=== PATIENT | female | born 2000 ===

== ENCOUNTER 2018-08-02 15:59 | Inpatient (IN) | payer MEDICAID, OTHER ==
[2018-08-02 17:03] LABS: BASO # 0.02 K/mm3 (0.0-2.0); BASO % 0.2 % (0.0-3.0); EOS % 0.3 % (1.5-5.0); LYMPH # 1.8 (1.2-3.4); LYMPH % 19.5 % (22.0-35.0); MEAN CELL VOLUME 90.6 fl (80.0-105.0); MEAN CORPUSCULAR HGB CONC 33.1 g/dl (31.0-37.0); MEAN PLATELET VOLUME 10.8 fl (7.0-11.0); MONO # 0.4 (0.1-0.6); MONO % 4.9 % (1.0-6.0); RBC 4.34 10^6/uL (3.5-6.1); RED CELL DISTRIBUTION WIDTH 12.8 % (11.5-14.5)
[2018-08-02 17:04] LABS: URINE APPEARANCE CLOUDY (CLEAR); URINE BILIRUBIN MODERATE (NEGATIVE); URINE BLOOD NEGATIVE (NEGATIVE); URINE COLOR DARK YELLOW (YELLOW); URINE GLUCOSE (UA) NEGATIVE (NEGATIVE); URINE LEUKOCYTE ESTERASE NEGATIVE Leu/uL (NEGATIVE); URINE PROTEIN 100 mg/dL (<30 mg/dL); URINE UROBILINOGEN 0.2 E.U./dL (<1 E.U./dL)
[2018-08-02 17:06] LABS: URINE RBC 0 - 2 /hpf (0-2)
[2018-08-02 17:07] LABS: URINE BACTERIA MANY /hpf
[2018-08-02 17:15] LABS: ACETAMINOPHEN < 10.0 ug/ml (10.0-20.0); SALICYLATE < 1 mg/dL (2.0-20.0)
[2018-08-02 17:16] LABS: ALB/GLOB RATIO 1.5 (1.1-1.8); ALBUMIN 4.6 g/dL (3.0-4.8); ALT/SGPT 25 U/L (7-56); AST/SGOT 28 U/L (14-36); BLOOD UREA NITROGEN 15 mg/dL (7-21); CALCIUM 9.7 mg/dL (8.4-10.5); GFR NON-AFRICAN AMERICAN > 60
[2018-08-02 17:26] LABS: BARBITURATES, UR NEGATIVE (NEGATIVE); BENZODIAZEPINES, UR NEGATIVE (NEGATIVE); OPIATES, UR NEGATIVE (NEGATIVE); PHENCYCLIDINE, UR NEGATIVE (NEGATIVE)
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
[2018-08-02] MEDS ORDERED: Magnesium Hydroxide Susp 30 ml UD PO PRN (21:54)
[2018-08-02] MEDS ORDERED: Alum-Mag Hydrox-Simethicone Susp (30 mL) PO PRN (21:54)
[2018-08-02] MEDS ORDERED: DiphenhydrAMINE 50 mg/ml Inj IM PRN (21:59)
[2018-08-02 22:25] VITALS: O2SAT 99
--- NOTE | 2018-08-02 22:42 | PCM.BM ---
<Briseyda Lopez - Last Filed: 08/02/18 22:39> Treatment Plan Problems - Problems identified on initial assessmt Medication non-adherence Date Initiated: 08/02/18 Time Initiated: 22:39 Assessment reference: NA Status: Active Auditory hallucinations Date Initiated: 08/02/18 Time Initiated: 22:40 Assessment reference: NA Status: Active Visual hallucinations Date Initiated: 08/02/18 Time Initiated: 22:40 Assessment reference: NA Status: Active Altered thought process Date Initiated: 08/02/18 Time Initiated: 22:40 Assessment reference: NA Status: Active Ineffective coping Date Initiated: 08/02/18 Time Initiated: 22:41 Assessment reference: NA Status: Active Treatment assets and liabiliti Patient Assests: educated, physically healthy Patient Liabilities: relationship conflicts, substance abuse - Milieu Protocol Maintain good personal hygiene: daily Encourage regular showers, daily Remind patient to perform daily oral care Conduct patient checks and document Observation sheet: Q15 minutes Maintain personal safety: every shift Educate patient to report safety concerns to staff, every shift Monitor environment for contraband/sharps Medication safety: Monitor for expected outcome, potential side effects: every shift, Assess barriers to learning: every shift, Assess readiness for medication education: every shift Family Contact Family involvement: Patient does not wish Family/SO involvement Discharge/Continuing Care - Education Needs Education Needs: Patient Medication, Patient Diagnosis/Disease Process, Patient Coping Skills, Patient Anger Management skills, Patient Aftercare Safety Plan - Discharge Discharge Criteria: Tolerates medication w/o severe side effects, Free of agitation, Normal sleep pattern, Ability to care for self, No longer exhibiting s/s of withdrawal, Reduction of target symptoms Discharge to:: Home <Alberto Mccarthy - Last Filed: 08/03/18 10:05> - Diagnosis (1) Schizophrenia Status: Acute Interventions: 08/03/18 10:05 * Group, milieu and supportive tx * SW consultation for discharge plan and social issues * Restart prozac 20 mg po daily for depression and anxiety * Risperdal 0.5 mg AMHS increased to 1 mg AMHS for psychosis * Klonopin 1 mg HS for anxiety and insomnia * Sonata 10 mg po HS prn: insomnia * Haldol 5, Ativan 2, Benadryl 50 po & IM medications prn for agitation * This provider informed patient on 08/03/18 that there is no guarantee about a safe amount or timing of cannabis use with meds. And that some patients report increased or different side effects or cannabis affects even with minimal use. This provider educated patient that she cannot expect to get the full benefits of treatment for mood, anxiety and psychosis if she continues to use MJA on a regular basis. * This provider also discussed the legality issues and medical concerns regarding smoking cannabis and its effects on pulmonary health. <Victoria Fuentes - Last Filed: 08/06/18 16:18> Family Contact Family involvement: Family/SO is involved Family contact: Patient agrees to contact
[2018-08-03 08:13] LABS: GLUCOSE,FASTING 135 mg/dL (65-110); HDL CHOLESTEROL 74 mg/dL (29-60)
[2018-08-03 08:23] LABS: LDL CHOLESTEROL 76 mg/dL (0-129)
[2018-08-03] MEDS: FLUoxetine Elix 20 MG/5 ML PO SCH (09:01)
--- NOTE | 2018-08-03 09:32 | RAD ---
Date of service: 08/02/2018 HISTORY: PES eval COMPARISON: No prior. TECHNIQUE: 1 view obtained. FINDINGS: LUNGS: No active pulmonary disease. PLEURA: No significant pleural effusion identified, no pneumothorax apparent. CARDIOVASCULAR: No aortic atherosclerotic calcification present. Normal cardiac size. No pulmonary vascular congestion. OSSEOUS STRUCTURES: No significant abnormalities. VISUALIZED UPPER ABDOMEN: Normal. OTHER FINDINGS: Bilateral nipple ornamentation. IMPRESSION: No active disease.
--- NOTE | 2018-08-03 10:05 | PCM.PSYCH ---
Initial Psychiatric Evaluation - Initial Psychiatric Evaluation Type of Admission: Voluntary Legal Status: Capacity History of Present Illness and Precipitating Events: Patient is a single, 18 year old female with history of schizophrenia, chronic cannabis use, at least one prior psychiatric admission at [facility] a few months ago, + history of SA as a minor, noncompliance with psychiatric medications of Prozac 20 mg po daily and Risperdal 0.5 mg po HS x 2 weeks who presented to the ER on Sunday,08/02/18 with her parents {mother & stepfather} for evaluation. ER & PES report indicate that, per parents, patient has been increasingly disorganized and aggressive at home. She has been talking and laughing to herself, throwing objects at family members and carelessly lighting candles in the house. Mother expressed concern that patient would burn the house down due to her disorganization. In the ED patient admitted to hearing auditory hallucinations of "voices". Patient was noted to be disorganized and actively responding to internal stimuli when she arrived on the unit. Patient was brought to seclusion room because she was loudly talking to herself. She appeared to respond well to medications Haldol 5 mg, Klonopin 1 mg and Sonata 10 mg po and slept through the night. I met with patient in the dayroom this morning. She is well-groomed and oriented to month, year and location. Regarding circumstances, she "doesn't really know" why she was hospitalized though almost immediately states "my mom noticed I was getting angry". Patient is guarded and aloof. She denies any issues with mood or perceptual disturbance. She denies recent agitated behaviors {contradicting ER reports}. Patient initially denies any prior psychiatric admissions however later indicates that she had "a psychotic break" a few months ago. With further questioning, she admitted that this psychotic break led to a psychiatric admission to [facility]. She cannot remember the symptoms that she demonstrated but recalls that her "neighbors called the loader helper sorting yard on me". Patient is disengaged and internally preoccupied during my questioning. Nonetheless she is willing to restart psychiatric medications and there have been no behavioral issues regarding her compliance in this respect. She is secretive and disorganized, her behaviors remain unpredictable. PSYCHIATRIC HISTORY ~One prior psychiatric admission at [facility] a few months ago for psychotic break, "neighbors called the loader helper sorting yard on me" ~History of SA as a minor, patient is vague. ~Noncompliant with psychiatric medications of Prozac 20 mg po daily and Risperdal 0.5 mg po HS x 2 weeks [employer], patient was only taking these medications for one month. She met with her psychiatrist at [facility] only on one occasion for her intake. SOCIAL HISTORY Single. Unemployed. Resides with her mother, stepfather and 18 yo stepbrother in [place], [place]. Patient dropped out of [employer] last year in her sophomore year. Patient has been smoking MJA almost on a daily basis since Miki year of high school. Recalls trying acid once as a freshman in college. Denies other drug use. Denies excessive alcohol use. Denies tobacco use. The patient failed the outpatient lower level of care: Yes Current Medications: Active Medications Generic Name Dose Route Start Last Admin Trade Name Freq PRN Reason Stop Dose Admin Acetaminophen 650 mg 08/02/18 21:54 Tylenol 325mg Tab PO Q6H PRN Pain, moderate (4-7) Al Hydrox/Mg Hydrox/Simethicone 30 ml 08/02/18 21:54 Maalox Plus 30 Ml PO DAILY PRN Upset Stomach Clonazepam 1 mg 08/02/18 22:15 08/02/18 22:10 Klonopin PO 1 mg HS FATIMAH Administration Protocol Diphenhydramine HCl 50 mg 08/02/18 21:56 Benadryl PO Q6 PRN Allergy symptoms Diphenhydramine HCl 50 mg 08/02/18 21:59 Benadryl IM Q6 PRN Allergy symptoms Fluoxetine HCl 20 mg 08/03/18 08:00 Prozac PO DAILY FATIMAH Haloperidol 5 mg 08/02/18 21:54 08/02/18 22:06 Haldol PO 5 mg Q6 PRN Administration Agitation Protocol Haloperidol Lactate 5 mg 08/02/18 22:00 Haldol IM Q6 PRN Agitation Protocol Lorazepam 2 mg 08/02/18 21:54 Ativan PO Q6H PRN Anxiety Protocol Lorazepam 2 mg 08/02/18 21:59 Ativan IM Q6H PRN Anxiety Protocol Magnesium Hydroxide 30 ml 08/02/18 21:54 Milk Of Magnesia PO DAILY PRN Constipation Risperidone 0.5 mg 08/02/18 22:00 08/02/18 22:06 Risperdal Tab PO 0.5 mg AMHS FATIMAH Administration Zaleplon 10 mg 08/02/18 21:56 08/02/18 22:06 Sonata PO 10 mg HS PRN Administration Insomnia Present on Admission - Present on Admission Any Indicators Present on Admission: No - Notes: Notes:: Please refer to ER report dated 08/02/18 for physical exam and ROS findings. Review of Systems - Review of Systems Review of Systems: Please refer to ER report dated 08/02/18 for physical exam and ROS findings. - Constitutional Constitutional: As Per HPI - EENT Eyes: As Per HPI Ears: As Per HPI Nose/Mouth/Throat: As Per HPI - Breasts Breasts: As Per HPI - Cardiovascular Cardiovascular: As Per HPI - Respiratory Respiratory: As Per HPI - Gastrointestinal Gastrointestinal: As Per HPI - Genitourinary Genitourinary: As Per HPI - Reproductive: Female Reproductive:Female: As Per HPI - Menstruation Menstruation: As Per HPI - Musculoskeletal Musculoskeletal: As Per HPI - Integumentary Integumentary: As Per HPI - Neurological Neurological: As Per HPI - Psychiatric Psychiatric: As Per HPI - Endocrine Endocrine: As Per HPI - Hematologic/Lymphatic Hematologic: As Per HPI Past Patient History - Past Psychiatric History Prior Professional Help: See HPI - PSYCHIATRIC Hx Schizophrenia: Yes Hx Substance Use: Yes (Marijuana) - CARDIAC Hx Cardiac Disorders: No Hx Hypertension: No - PULMONARY Hx Tuberculosis: No - NEUROLOGICAL HX Cerebrovascular Accident: No Hx Seizures: No - HEMATOLOGICAL/ONCOLOGICAL Hx Cancer: No - GENITOURINARY/GYNECOLOGICAL Hx Sexually Transmitted Disorders: No - SURGICAL HISTORY Hx Surgeries: No - Medical/Surgical History Reviewed & confirmed: by [place] Meds Allergies/Adverse Reactions: Allergies Allergy/AdvReac Type Severity Reaction Status Date / Time No Known Allergies Allergy Verified 08/02/18 21:50 Mental Status Examination - Personal Presentation Personal Presentation: Looks stated age - Affect Affect: Constricted, Flat - Motor Activity Motor Activity: Calm - Reliability in Providing Information Reliability in Providing Information: Poor, due to alteration in thoughts - Speech Speech: Disorganized - Mood Mood: Neutral - Formal Thought Process Formal Thought Process: Hallucinations, Paranoia, Loosening of associations - Obsessions/Compulsions Obsessions: No Compulsions: No - Cognitive Functions Orientation: Person, Place Sensorium: Alert Attention/Concentration: Easily distracted Estimate of Intelligence: Average Judgement: Imparied, as evidence by: Poor judgement, Imparied, as evidence by: Lack of insight into illness Memory: Recent impaired, as evidence by: Inability to recall events of the day, Remote impaired as evidenced by: Inability to recall historical events - Strength & Assets Inventory Strength & Assets Inventory: Family support, Cooperative Psychiatric Physical Exam - Physical Exam Reviewed and confirmed: Emergency Department Physical Exam (Please refer to ER report dated 08/02/18 for physical exam and ROS findings.) Results - Vital Signs Recent Vital Signs: Last Vital Signs Temp 98 F 08/02/18 22:24 Pulse 88 08/02/18 22:24 Resp 18 08/02/18 23:30 BP 143/86 08/02/18 22:24 Pulse Ox 99 08/02/18 22:24 - Labs Result Diagrams: 08/02/18 16:54 08/02/18 16:54 Labs: Laboratory Results - last 24 hr 08/02/18 08/02/18 08/02/18 16:54 16:54 16:54 WBC 9.0 RBC 4.34 Hgb 13.0 Hct 39.3 MCV 90.6 MCH 30.0 MCHC 33.1 RDW 12.8 Plt Count 230 MPV 10.8 Neut % (Auto) 75.1 H Lymph % (Auto) 19.5 L Wilkin % (Auto) 4.9 Eos % (Auto) 0.3 L Baso % (Auto) 0.2 Lymph # (Auto) 1.8 Wilkin # (Auto) 0.4 Eos # (Auto) 0.0 Baso # (Auto) 0.02 Absolute Neuts (auto) 6.75 H Sodium 141 Potassium 4.3 Chloride 102 Carbon Dioxide 29 Anion Gap 14 BUN 15 Creatinine 1.1 Est GFR ( Amer) > 60 Est GFR (Non-Af Amer) > 60 Random Glucose 104 Calcium 9.7 Total Bilirubin 1.7 H AST 28 ALT 25 Alkaline Phosphatase 60 Total Creatine Kinase 140 Total Protein 7.8 Albumin 4.6 Globulin 3.2 Albumin/Globulin Ratio 1.5 Urine Color Dark yellow Urine Appearance Cloudy Urine pH 6.0 Ur Specific Denio >= 1.030 Urine Protein 100 H Urine Glucose (UA) Negative Urine Ketones 15 H Urine Blood Negative Urine Nitrate Negative Urine Bilirubin Moderate H Urine Urobilinogen 0.2 Ur Leukocyte Esterase Negative Urine RBC 0 - 2 Urine WBC 1 - 3 Ur Epithelial Cells 6 - 8 H Urine Bacteria Many Salicylates Urine Opiates Screen Urine Methadone Screen Acetaminophen Ur Barbiturates Screen Ur Phencyclidine Scrn Ur Amphetamines Screen U Benzodiazepines Scrn U Oth Cocaine Metabols U Cannabinoids Screen Alcohol, Quantitative 08/02/18 08/02/18 08/02/18 16:54 16:54 16:54 WBC RBC Hgb Hct MCV MCH MCHC RDW Plt Count MPV Neut % (Auto) Lymph % (Auto) Wilkin % (Auto) Eos % (Auto) Baso % (Auto) Lymph # (Auto) Wilkin # (Auto) Eos # (Auto) Baso # (Auto) Absolute Neuts (auto) Sodium Potassium Chloride Carbon Dioxide Anion Gap BUN Creatinine Est GFR ( Amer) Est GFR (Non-Af Amer) Random Glucose Calcium Total Bilirubin AST ALT Alkaline Phosphatase Total Creatine Kinase Total Protein Albumin Globulin Albumin/Globulin Ratio Urine Color Urine Appearance Urine pH Ur Specific Denio Urine Protein Urine Glucose (UA) Urine Ketones Urine Blood Urine Nitrate Urine Bilirubin Urine Urobilinogen Ur Leukocyte Esterase Urine RBC Urine WBC Ur Epithelial Cells Urine Bacteria Salicylates < 1 L Urine Opiates Screen Negative Urine Methadone Screen Negative Acetaminophen < 10.0 L Ur Barbiturates Screen Negative Ur Phencyclidine Scrn Negative Ur Amphetamines Screen Negative U Benzodiazepines Scrn Negative U Oth Cocaine Metabols Negative U Cannabinoids Screen Positive H Alcohol, Quantitative < 10 - Impressions Impression: Please refer to ER report dated 08/02/18 for physical exam and ROS findings. DSM Plan - DSM 5 DSM 5 Diagnosis: Schizophrenia by hx Depression by hx Cannabis abuse r/o SIPD {lacing of cannabis with hallucinogenics that aren't detectable on typical urine drug screens} - Recommended/Plan of Treatment Treatment Recommendations and Plan of Treatment: * Group, milieu and supportive tx * SW consultation for discharge plan and social issues * Restart prozac 20 mg po daily for depression and anxiety * Risperdal 0.5 mg AMHS increased to 1 mg AMHS for psychosis * Klonopin 1 mg HS for anxiety and insomnia * Sonata 10 mg po HS prn: insomnia * Haldol 5, Ativan 2, Benadryl 50 po & IM medications prn for agitation * This provider informed patient on 08/03/18 that there is no guarantee about a safe amount or timing of cannabis use with meds. And that some patients report increased or different side effects or cannabis affects even with minimal use. This provider educated patient that she cannot expect to get the full benefits of treatment for mood, anxiety and psychosis if she continues to use MJA on a regular basis. * This provider also discussed the legality issues and medical concerns regarding smoking cannabis and its effects on pulmonary health. * Vitals reviewed and noted below: Selected Entries 08/02/18 08/02/18 08/02/18 20:11 20:53 22:24 Temperature 98.3 F 98 F Pulse Rate 82 82 88 Respiratory 16 18 18 Rate Blood Pressure 152/89 H 137/80 143/86 Please refer to ER report dated 08/02/18 for physical exam and ROS findings. 08/02/18 19:15 Patient is nontoxic well-appearing in no distress vital signs are stable. CBC WNL CMP WNL Tylenol WNL Salicylate WNL Alcohol level WNL Urine drug screen positive for marijuana UA; no leukocytes cxr: wnl ekg sinus rhythm with short [place] at 92 bpm normal axis no ST elevations QTC 417 ADMISSION LABS NOTED BELOW: Laboratory Tests 08/02/18 08/02/18 08/02/18 16:54 16:54 16:54 WBC 9.0 RBC 4.34 Hgb 13.0 Hct 39.3 MCV 90.6 MCH 30.0 MCHC 33.1 RDW 12.8 Plt Count 230 MPV 10.8 Neut % (Auto) 75.1 H Lymph % (Auto) 19.5 L Wilkin % (Auto) 4.9 Eos % (Auto) 0.3 L Baso % (Auto) 0.2 Lymph # (Auto) 1.8 Wilkin # (Auto) 0.4 Eos # (Auto) 0.0 Baso # (Auto) 0.02 Absolute Neuts (auto) 6.75 H Sodium 141 Potassium 4.3 Chloride 102 Carbon Dioxide 29 Anion Gap 14 BUN 15 Creatinine 1.1 Est GFR ( Amer) > 60 Est GFR (Non-Af Amer) > 60 Random Glucose 104 Fasting Glucose Calcium 9.7 Total Bilirubin 1.7 H AST 28 ALT 25 Alkaline Phosphatase 60 Total Creatine Kinase 140 Total Protein 7.8 Albumin 4.6 Globulin 3.2 Albumin/Globulin Ratio 1.5 Triglycerides Cholesterol LDL Cholesterol Direct HDL Cholesterol TSH 3rd Generation Urine Color Dark yellow Urine Appearance Cloudy Urine pH 6.0 Ur Specific Denio >= 1.030 Urine Protein 100 H Urine Glucose (UA) Negative Urine Ketones 15 H Urine Blood Negative Urine Nitrate Negative Urine Bilirubin Moderate H Urine Urobilinogen 0.2 Ur Leukocyte Esterase Negative Urine RBC 0 - 2 Urine WBC 1 - 3 Ur Epithelial Cells 6 - 8 H Urine Bacteria Many Salicylates Urine Opiates Screen Urine Methadone Screen Acetaminophen Ur Barbiturates Screen Ur Phencyclidine Scrn Ur Amphetamines Screen U Benzodiazepines Scrn U Oth Cocaine Metabols U Cannabinoids Screen Alcohol, Quantitative 08/02/18 08/02/18 08/02/18 16:54 16:54 16:54 WBC RBC Hgb Hct MCV MCH MCHC RDW Plt Count MPV Neut % (Auto) Lymph % (Auto) Wilkin % (Auto) Eos % (Auto) Baso % (Auto) Lymph # (Auto) Wilkin # (Auto) Eos # (Auto) Baso # (Auto) Absolute Neuts (auto) Sodium Potassium Chloride Carbon Dioxide Anion Gap BUN Creatinine Est GFR ( Amer) Est GFR (Non-Af Amer) Random Glucose Fasting Glucose Calcium Total Bilirubin AST ALT Alkaline Phosphatase Total Creatine Kinase Total Protein Albumin Globulin Albumin/Globulin Ratio Triglycerides Cholesterol LDL Cholesterol Direct HDL Cholesterol TSH 3rd Generation Urine Color Urine Appearance Urine pH Ur Specific Denio Urine Protein Urine Glucose (UA) Urine Ketones Urine Blood Urine Nitrate Urine Bilirubin Urine Urobilinogen Ur Leukocyte Esterase Urine RBC Urine WBC Ur Epithelial Cells Urine Bacteria Salicylates < 1 L Urine Opiates Screen Negative Urine Methadone Screen Negative Acetaminophen < 10.0 L Ur Barbiturates Screen Negative Ur Phencyclidine Scrn Negative Ur Amphetamines Screen Negative U Benzodiazepines Scrn Negative U Oth Cocaine Metabols Negative U Cannabinoids Screen Positive H Alcohol, Quantitative < 10 08/03/18 08/03/18 07:00 07:00 WBC RBC Hgb Hct MCV MCH MCHC RDW Plt Count MPV Neut % (Auto) Lymph % (Auto) Wilkin % (Auto) Eos % (Auto) Baso % (Auto) Lymph # (Auto) Wilkin # (Auto) Eos # (Auto) Baso # (Auto) Absolute Neuts (auto) Sodium Potassium Chloride Carbon Dioxide Anion Gap BUN Creatinine Est GFR ( Amer) Est GFR (Non-Af Amer) Random Glucose Fasting Glucose 135 H Calcium Total Bilirubin AST ALT Alkaline Phosphatase Total Creatine Kinase Total Protein Albumin Globulin Albumin/Globulin Ratio Triglycerides 42 Cholesterol 169 LDL Cholesterol Direct 76 HDL Cholesterol 74 H TSH 3rd Generation 1.15 Urine Color Urine Appearance Urine pH Ur Specific Denio Urine Protein Urine Glucose (UA) Urine Ketones Urine Blood Urine Nitrate Urine Bilirubin Urine Urobilinogen Ur Leukocyte Esterase Urine RBC Urine WBC Ur Epithelial Cells Urine Bacteria Salicylates Urine Opiates Screen Urine Methadone Screen Acetaminophen Ur Barbiturates Screen Ur Phencyclidine Scrn Ur Amphetamines Screen U Benzodiazepines Scrn U Oth Cocaine Metabols U Cannabinoids Screen Alcohol, Quantitative Projected ELOS: 7 days Prognosis: Guarded Discharge Plan and Discharge Criteria: Resume outpatient medication management services - Tobacco Cessation Tobacco Use Status for the last 30 days: Non User Tobacco Use Treatment Practical Counseling Provided: No Reason for not providing: NON USER - Alcohol or Substance Abuse Does the patient have an Alcohol or Substance Abuse Disorder: Yes Initial Psych Certification - Initial Certification I certify that the inpatient psychiatric facility admission was medically necessary for either: Treatment which could reasonbly be expected to improve pt's condition, Diagnostic study I estimate of hospitalization is necessary for proper treatment of the patient: 7 Unit of Time: Days
--- NOTE | 2018-08-03 11:54 | CARD ---
APPROVED REPORT Date of service: 08/02/2018 EKG Measurement Heart [id number] <Conclusion> Sinus rhythm with short VT Otherwise normal ECG
--- NOTE | 2018-08-04 09:15 | PCM.PYCHPN ---
Psychiatric Progress Note - Psychiatric Progress Note Patient seen today, length of contact: 25 min Problems Identified/Issues Discussed: History of Present Illness and Precipitating Events: Patient is a single, 18 year old female with history of schizophrenia, chronic cannabis use, at least one prior psychiatric admission at [facility] a few months ago, + history of SA as a minor, noncompliance with psychiatric medications of Prozac 20 mg po daily and Risperdal 0.5 mg po HS x 2 weeks who presented to the ER on Sunday,08/02/18 with her parents {mother & stepfather} for evaluation. ER & PES report indicate that, per parents, patient has been increasingly disorganized and aggressive at home. She has been talking and laughing to herself, throwing objects at family members and carelessly lighting candles in the house. Mother expressed concern that patient would burn the house down due to her disorganization. In the ED patient admitted to hearing auditory hallucinations of "voices". Patient was noted to be disorganized and actively responding to internal stimuli when she arrived on the unit. Patient was brought to seclusion room because she was loudly talking to herself. She appeared to respond well to medications Haldol 5 mg, Klonopin 1 mg and Sonata 10 mg po and slept through the night. I met with patient in the dayroom this morning. She is well-groomed and oriented to month, year and location. Regarding circumstances, she "doesn't really know" why she was hospitalized though almost immediately states "my mom noticed I was getting angry". Patient is guarded and aloof. She denies any issues with mood or perceptual disturbance. She denies recent agitated behaviors {contradicting ER reports}. Patient initially denies any prior psychiatric admissions however later indicates that she had "a psychotic break" a few months ago. With further questioning, she admitted that this psychotic break led to a psychiatric admission to [facility]. She cannot remember the symptoms that she demonstrated but recalls that her "neighbors called the veneer drier on me". Patient is disengaged and internally preoccupied during my questioning. Nonetheless she is willing to restart psychiatric medications and there have been no behavioral issues regarding her compliance in this respect. She is secretive and disorganized, her behaviors remain unpredictable. PSYCHIATRIC HISTORY ~One prior psychiatric admission at [facility] a few months ago for psychotic break, "neighbors called the veneer drier on me" ~History of SA as a minor, patient is vague. 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 She met with her psychiatrist at [facility] only on one occasion for her intake. SOCIAL HISTORY Single. Unemployed. Resides with her mother, stepfather and 18 yo stepbrother in [place], [place]. Patient dropped out of [employer] last year in her sophomore year. Patient has been smoking MJA almost on a daily basis since [employer]iki year of high school. Recalls trying acid once as a freshman in college. Denies other drug use. Denies excessive alcohol use. Denies tobacco use. PROGRESS NOTE 08/04/18 I met with patient at bedside this morning. Grooming is fair and she remains oriented to month, year and location. She is responsive but not overly co mmunicative. Denies any issues with her medications thus far, seems to have slept well. There have been no behavioral issues either thought patient is eager for discharge. Was able to tolerate a visit with her mother on Sunday. Per staff notes, patient doesn't want to submit a 48 hour notice because she doesn't want [facility] to become involved. Patient is guarded and aloof. She continues to deny any concerns including any issues with mood or perceptual disturbance. She required another prn of Haldol 5 mg and ativan 2 mg on Sunday morning because she was talking loudly to herself in the community room, disturbing peers around her. Nonetheless patient is willing to c/w her psychiatric medications and there have been no behavioral issues regarding her compliance in this respect. She remains secretive and her behaviors remain unpredictable. Diagnostic Results: Schizophrenia by hx Depression by hx Cannabis abuse r/o SIPD {lacing of cannabis with hallucinogenics that aren't detectable on typical urine drug screens} Medication Change: Yes Medical Record Reviewed: Yes Mental Status Examination - Cognitive Function Orientation: Person, Place - Mood Mood: Neutral - Affect Affect: Constricted, Flat - Formal Thought Process Formal Thought Process: Hallucinations, Paranoia, Loosening of associations - Homicidal Ideation Homicidal Ideation: No Goal/Treatment Plan - Goal/Treatment Plan Progress Toward Problem(s) and Goals/Treatment Plan: * Group, milieu and supportive tx * SW consultation for discharge plan and social issues * c/w prozac 20 mg po daily for depression and anxiety * Risperdal 0.5 mg AMHS increased to 1 mg AMHS for psychosis * Klonopin 1 mg HS for anxiety and insomnia * Sonata 10 mg po HS prn: insomnia * Haldol 5, Ativan 2, Benadryl 50 po & IM medications prn for agitation * This provider informed patient on 08/03/18 that there is no guarantee about a safe amount or timing of cannabis use with meds. And that some patients report increased or different side effects or cannabis affects even with minimal use. This provider educated patient that she cannot expect to get the full benefits of treatment for mood, anxiety and psychosis if she continues to use MJA on a regular basis. * This provider also discussed the legality issues and medical concerns regarding smoking cannabis and its effects on pulmonary health. * Vitals reviewed and noted below: Selected Entries 08/02/18 08/03/18 22:24 07:08 Temperature 98 F 97.8 F Pulse Rate 88 78 Respiratory 18 18 Rate Blood Pressure 143/86 91/46 L Please refer to ER report dated 08/02/18 for physical exam and ROS findings. 08/02/18 19:15 Patient is nontoxic well-appearing in no distress vital signs are stable. CBC WNL CMP WNL Tylenol WNL Salicylate WNL Alcohol level WNL Urine drug screen positive for marijuana UA; no leukocytes cxr: wnl ekg sinus rhythm with short MA at 92 bpm normal axis no ST elevations QTC 417 ADMISSION LABS NOTED BELOW: Laboratory Tests 08/02/18 08/02/18 08/02/18 16:54 16:54 16:54 WBC 9.0 RBC 4.34 Hgb 13.0 Hct 39.3 MCV 90.6 MCH 30.0 MCHC 33.1 RDW 12.8 Plt Count 230 MPV 10.8 Neut % (Auto) 75.1 H Lymph % (Auto) 19.5 L [place] % (Auto) 4.9 Eos % (Auto) 0.3 L Baso % (Auto) 0.2 Lymph # (Auto) 1.8 [place] # (Auto) 0.4 Eos # (Auto) 0.0 Baso # (Auto) 0.02 Absolute Neuts (auto) 6.75 H Sodium 141 Potassium 4.3 Chloride 102 Carbon Dioxide 29 Anion Gap 14 BUN 15 Creatinine 1.1 Est GFR ( Amer) > 60 Est GFR (Non-Af Amer) > 60 Random Glucose 104 Fasting Glucose Calcium 9.7 Total Bilirubin 1.7 H AST 28 ALT 25 Alkaline Phosphatase 60 Total Creatine Kinase 140 Total Protein 7.8 Albumin 4.6 Globulin 3.2 Albumin/Globulin Ratio 1.5 Triglycerides Cholesterol LDL Cholesterol Direct HDL Cholesterol TSH 3rd Generation Urine Color Dark yellow Urine Appearance Cloudy Urine pH 6.0 Ur Specific [place] >= 1.030 Urine Protein 100 H Urine Glucose (UA) Negative Urine Ketones 15 H Urine Blood Negative Urine Nitrate Negative Urine Bilirubin Moderate H Urine Urobilinogen 0.2 Ur Leukocyte Esterase Negative Urine RBC 0 - 2 Urine WBC 1 - 3 Ur Epithelial Cells 6 - 8 H Urine Bacteria Many Salicylates Urine Opiates Screen Urine Methadone Screen Acetaminophen Ur Barbiturates Screen Ur Phencyclidine Scrn Ur Amphetamines Screen U Benzodiazepines Scrn U Oth Cocaine Metabols U Cannabinoids Screen Alcohol, Quantitative 08/02/18 08/02/18 08/02/18 16:54 16:54 16:54 WBC RBC Hgb Hct MCV MCH MCHC RDW Plt Count MPV Neut % (Auto) Lymph % (Auto) [place] % (Auto) Eos % (Auto) Baso % (Auto) Lymph # (Auto) [place] # (Auto) Eos # (Auto) Baso # (Auto) Absolute Neuts (auto) Sodium Potassium Chloride Carbon Dioxide Anion Gap BUN Creatinine Est GFR ( Amer) Est GFR (Non-Af Amer) Random Glucose Fasting Glucose Calcium Total Bilirubin AST ALT Alkaline Phosphatase Total Creatine Kinase Total Protein Albumin Globulin Albumin/Globulin Ratio Triglycerides Cholesterol LDL Cholesterol Direct HDL Cholesterol TSH 3rd Generation Urine Color Urine Appearance Urine pH Ur Specific [place] Urine Protein Urine Glucose (UA) Urine Ketones Urine Blood Urine Nitrate Urine Bilirubin Urine Urobilinogen Ur Leukocyte Esterase Urine RBC Urine WBC Ur Epithelial Cells Urine Bacteria Salicylates < 1 L Urine Opiates Screen Negative Urine Methadone Screen Negative Acetaminophen < 10.0 L Ur Barbiturates Screen Negative Ur Phencyclidine Scrn Negative Ur Amphetamines Screen Negative U Benzodiazepines Scrn Negative U Oth Cocaine Metabols Negative U Cannabinoids Screen Positive H Alcohol, Quantitative < 10 08/03/18 08/03/18 07:00 07:00 WBC RBC Hgb Hct MCV MCH MCHC RDW Plt Count MPV Neut % (Auto) Lymph % (Auto) [place] % (Auto) Eos % (Auto) Baso % (Auto) Lymph # (Auto) [place] # (Auto) Eos # (Auto) Baso # (Auto) Absolute Neuts (auto) Sodium Potassium Chloride Carbon Dioxide Anion Gap BUN Creatinine Est GFR ( Amer) Est GFR (Non-Af Amer) Random Glucose Fasting Glucose 135 H Calcium Total Bilirubin AST ALT Alkaline Phosphatase Total Creatine Kinase Total Protein Albumin Globulin Albumin/Globulin Ratio Triglycerides 42 Cholesterol 169 LDL Cholesterol Direct 76 HDL Cholesterol 74 H TSH 3rd Generation 1.15 Urine Color Urine Appearance Urine pH Ur Specific [place] Urine Protein Urine Glucose (UA) Urine Ketones Urine Blood Urine Nitrate Urine Bilirubin Urine Urobilinogen Ur Leukocyte Esterase Urine RBC Urine WBC Ur Epithelial Cells Urine Bacteria Salicylates Urine Opiates Screen Urine Methadone Screen Acetaminophen Ur Barbiturates Screen Ur Phencyclidine Scrn Ur Amphetamines Screen U Benzodiazepines Scrn U Oth Cocaine Metabols U Cannabinoids Screen Alcohol, Quantitative
[2018-08-04] MEDS: FLUoxetine Elix 20 MG/5 ML PO SCH (09:18)
--- NOTE | 2018-08-05 09:40 | PCM.PYCHPN ---
Psychiatric Progress Note - Psychiatric Progress Note Patient seen today, length of contact: 25 min Problems Identified/Issues Discussed: History of Present Illness and Precipitating Events: Patient is a single, 18 year old female with history of schizophrenia, chronic cannabis use, at least one prior psychiatric admission at [facility] a few months ago, + history of SA as a minor, noncompliance with psychiatric medications of Prozac 20 mg po daily and Risperdal 0.5 mg po HS x 2 weeks who presented to the ER on Sunday,08/02/18 with her parents {mother & stepfather} for evaluation. ER & PES report indicate that, per parents, patient has been increasingly disorganized and aggressive at home. She has been talking and laughing to herself, throwing objects at family members and carelessly lighting candles in the house. Mother expressed concern that patient would burn the house down due to her disorganization. In the ED patient admitted to hearing auditory hallucinations of "voices". Patient was noted to be disorganized and actively responding to internal stimuli when she arrived on the unit. Patient was brought to seclusion room because she was loudly talking to herself. She appeared to respond well to medications Haldol 5 mg, Klonopin 1 mg and Sonata 10 mg po and slept through the night. I met with patient in the dayroom this morning. She is well-groomed and oriented to month, year and location. Regarding circumstances, she "doesn't really know" why she was hospitalized though almost immediately states "my mom noticed I was getting angry". Patient is guarded and aloof. She denies any issues with mood or perceptual disturbance. She denies recent agitated behaviors {contradicting ER reports}. Patient initially denies any prior psychiatric admissions however later indicates that she had "a psychotic break" a few months ago. With further questioning, she admitted that this psychotic break led to a psychiatric admission to [facility]. She cannot remember the symptoms that she demonstrated but recalls that her "neighbors called the consumer lending manager on me". Patient is disengaged and internally preoccupied during my questioning. Nonetheless she is willing to restart psychiatric medications and there have been no behavioral issues regarding her compliance in this respect. She is secretive and disorganized, her behaviors remain unpredictable. PSYCHIATRIC HISTORY ~One prior psychiatric admission at [facility] a few months ago for psychotic break, "neighbors called the consumer lending manager on me" ~History of SA as a minor, patient is vague. 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 She met with her psychiatrist at [facility] only on one occasion for her intake. SOCIAL HISTORY Single. Unemployed. Resides with her mother, stepfather and 18 yo stepbrother in [place], [place]. Patient dropped out of [employer] last year in her sophomore year. Patient has been smoking MJA almost on a daily basis since [employer]iki year of high school. Recalls trying acid once as a freshman in college. Denies other drug use. Denies excessive alcohol use. Denies tobacco use. PROGRESS NOTE 08/05/18 I met with patient at bedside this morning. Grooming is fair and she is oriented to month, year and location. She is responsive but not overly communicative. Denies any issues with her medications thus far, seems to have slept well. Patient remains odd, guarded and aloof. Patient has been minimizing her symptoms and continues to deny any concerns including any issues with mood or perceptual disturbance. Patient required 2 prns of Haldol 5 mg and ativan 2 mg during the first 24 hours on the unit because she was talking loudly to herself in the community room, disturbing peers around her. On Sunday patient attempted to elope as the staff therapist was exiting the unit. She was observed to be acting bizarre and laughing inappropriately. Staff medicated her with Haldol 5 mg, Ativan 2 mg and Benadryl 50 mg x1. Per staff notes, patient doesn't want to submit a 48 hour notice because she doesn't want [facility] to become involved Patient remains disorganized and secretive with minimal engagement. Her behavior remain unpredictable. Diagnostic Results: Schizophrenia by hx Depression by hx Cannabis abuse r/o SIPD {lacing of cannabis with hallucinogenics that aren't detectable on typical urine drug screens} Medication Change: No (holding on med changes due to sedation) Medical Record Reviewed: Yes Mental Status Examination - Cognitive Function Orientation: Person, Place Attention: Poor Concentration: Poor Association: Loose Fund of Knowledge: Poor - Mood Mood: Neutral - Affect Affect: Constricted, Flat - Formal Thought Process Formal Thought Process: Hallucinations, Paranoia, Loosening of associations - Suicidal Ideation Suicidal Ideation: No - Homicidal Ideation Homicidal Ideation: No Goal/Treatment Plan - Goal/Treatment Plan Progress Toward Problem(s) and Goals/Treatment Plan: * Group, milieu and supportive tx * SW consultation for discharge plan and social issues * c/w prozac 20 mg po daily for depression and anxiety * Risperdal 0.5 mg AMHS increased to 1 mg AMHS for psychosis * Klonopin 1 mg HS for anxiety and insomnia * Sonata 10 mg po HS prn: insomnia * Holding on further medication increases due to sedation on the unit. * Haldol 5, Ativan 2, Benadryl 50 po & IM medications prn for agitation {received 3 doses thus far 08/02/18 x1, 08/03/18 x1, 08/04/18 x1} * This provider informed patient on 08/03/18 that there is no guarantee about a safe amount or timing of cannabis use with meds. And that some patients report increased or different side effects or cannabis affects even with minimal use. This provider educated patient that she cannot expect to get the full benefits of treatment for mood, anxiety and psychosis if she continues to use MJA on a regular basis. * This provider also discussed the legality issues and medical concerns regarding smoking cannabis and its effects on pulmonary health. * Vitals reviewed and noted below: 08/04/18 08/04/18 07:00 16:00 Temperature 97.7 F Pulse Rate 71 96 H Respiratory 17 Rate Blood Pressure 92/60 L 111/71 Please refer to ER report dated 08/02/18 for physical exam and ROS findings. 08/02/18 19:15 Patient is nontoxic well-appearing in no distress vital signs are stable. CBC WNL CMP WNL Tylenol WNL Salicylate WNL Alcohol level WNL Urine drug screen positive for marijuana UA; no leukocytes cxr: wnl ekg sinus rhythm with short OH at 92 bpm normal axis no ST elevations QTC 417 ADMISSION LABS NOTED BELOW: Laboratory Tests 08/02/18 08/02/18 08/02/18 16:54 16:54 16:54 WBC 9.0 RBC 4.34 Hgb 13.0 Hct 39.3 MCV 90.6 MCH 30.0 MCHC 33.1 RDW 12.8 Plt Count 230 MPV 10.8 Neut % (Auto) 75.1 H Lymph % (Auto) 19.5 L [place] % (Auto) 4.9 Eos % (Auto) 0.3 L Baso % (Auto) 0.2 Lymph # (Auto) 1.8 [place] # (Auto) 0.4 Eos # (Auto) 0.0 Baso # (Auto) 0.02 Absolute Neuts (auto) 6.75 H Sodium 141 Potassium 4.3 Chloride 102 Carbon Dioxide 29 Anion Gap 14 BUN 15 Creatinine 1.1 Est GFR ( Amer) > 60 Est GFR (Non-Af Amer) > 60 Random Glucose 104 Fasting Glucose Calcium 9.7 Total Bilirubin 1.7 H AST 28 ALT 25 Alkaline Phosphatase 60 Total Creatine Kinase 140 Total Protein 7.8 Albumin 4.6 Globulin 3.2 Albumin/Globulin Ratio 1.5 Triglycerides Cholesterol LDL Cholesterol Direct HDL Cholesterol TSH 3rd Generation Urine Color Dark yellow Urine Appearance Cloudy Urine pH 6.0 Ur Specific [place] >= 1.030 Urine Protein 100 H Urine Glucose (UA) Negative Urine Ketones 15 H Urine Blood Negative Urine Nitrate Negative Urine Bilirubin Moderate H Urine Urobilinogen 0.2 Ur Leukocyte Esterase Negative Urine RBC 0 - 2 Urine WBC 1 - 3 Ur Epithelial Cells 6 - 8 H Urine Bacteria Many Salicylates Urine Opiates Screen Urine Methadone Screen Acetaminophen Ur Barbiturates Screen Ur Phencyclidine Scrn Ur Amphetamines Screen U Benzodiazepines Scrn U Oth Cocaine Metabols U Cannabinoids Screen Alcohol, Quantitative 08/02/18 08/02/18 08/02/18 16:54 16:54 16:54 WBC RBC Hgb Hct MCV MCH MCHC RDW Plt Count MPV Neut % (Auto) Lymph % (Auto) [place] % (Auto) Eos % (Auto) Baso % (Auto) Lymph # (Auto) [place] # (Auto) Eos # (Auto) Baso # (Auto) Absolute Neuts (auto) Sodium Potassium Chloride Carbon Dioxide Anion Gap BUN Creatinine Est GFR ( Amer) Est GFR (Non-Af Amer) Random Glucose Fasting Glucose Calcium Total Bilirubin AST ALT Alkaline Phosphatase Total Creatine Kinase Total Protein Albumin Globulin Albumin/Globulin Ratio Triglycerides Cholesterol LDL Cholesterol Direct HDL Cholesterol TSH 3rd Generation Urine Color Urine Appearance Urine pH Ur Specific [place] Urine Protein Urine Glucose (UA) Urine Ketones Urine Blood Urine Nitrate Urine Bilirubin Urine Urobilinogen Ur Leukocyte Esterase Urine RBC Urine WBC Ur Epithelial Cells Urine Bacteria Salicylates < 1 L Urine Opiates Screen Negative Urine Methadone Screen Negative Acetaminophen < 10.0 L Ur Barbiturates Screen Negative Ur Phencyclidine Scrn Negative Ur Amphetamines Screen Negative U Benzodiazepines Scrn Negative U Oth Cocaine Metabols Negative U Cannabinoids Screen Positive H Alcohol, Quantitative < 10 08/03/18 08/03/18 07:00 07:00 WBC RBC Hgb Hct MCV MCH MCHC RDW Plt Count MPV Neut % (Auto) Lymph % (Auto) [place] % (Auto) Eos % (Auto) Baso % (Auto) Lymph # (Auto) [place] # (Auto) Eos # (Auto) Baso # (Auto) Absolute Neuts (auto) Sodium Potassium Chloride Carbon Dioxide Anion Gap BUN Creatinine Est GFR ( Amer) Est GFR (Non-Af Amer) Random Glucose Fasting Glucose 135 H Calcium Total Bilirubin AST ALT Alkaline Phosphatase Total Creatine Kinase Total Protein Albumin Globulin Albumin/Globulin Ratio Triglycerides 42 Cholesterol 169 LDL Cholesterol Direct 76 HDL Cholesterol 74 H TSH 3rd Generation 1.15 Urine Color Urine Appearance Urine pH Ur Specific [place] Urine Protein Urine Glucose (UA) Urine Ketones Urine Blood Urine Nitrate Urine Bilirubin Urine Urobilinogen Ur Leukocyte Esterase Urine RBC Urine WBC Ur Epithelial Cells Urine Bacteria Salicylates Urine Opiates Screen Urine Methadone Screen Acetaminophen Ur Barbiturates Screen Ur Phencyclidine Scrn Ur Amphetamines Screen U Benzodiazepines Scrn U Oth Cocaine Metabols U Cannabinoids Screen Alcohol, Quantitative
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
[2018-08-07] MEDS: Multivitamin With Minerals Tab PO SCH (11:19)
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
[2018-08-08] MEDS: Multivitamin With Minerals Tab PO SCH (09:21)
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
[2018-08-09] MEDS: Multivitamin With Minerals Tab PO SCH (08:41)
--- NOTE | 2018-08-09 14:59 | PCM.PYCHPN ---
Psychiatric Progress Note - Psychiatric Progress Note Patient seen today, length of contact: 30 minutes Patient Chief Complaint: "I am doing fine, I am doing perfect, I am doing excellent" Problems Identified/Issues Discussed: Previous history, current symptoms, previous medication management, risk/benefits/alternatives of the medications, aftercare plan. Medical Problems: Patient reported being healthy. Diagnostic Results: 08/02/18 16:54 08/02/18 16:54 Lab Results 08/03/18 07:00: RPR Nonreactive 08/03/18 07:00: TSH 3rd Generation 1.15 08/03/18 07:00: Fasting Glucose 135 H, Triglycerides 42, Cholesterol 169, LDL Cholesterol Direct 76, HDL Cholesterol 74 H 08/02/18 16:54: Alcohol, Quantitative < 10 08/02/18 16:54: Salicylates < 1 L, Acetaminophen < 10.0 L 08/02/18 16:54: Urine Opiates Screen Negative, Urine Methadone Screen Negative, Ur Barbiturates Screen Negative, Ur Phencyclidine Scrn Negative, Ur Amphetamines Screen Negative, U Benzodiazepines Scrn Negative, U Oth Cocaine Metabols Negative, U Cannabinoids Screen Positive H 08/02/18 16:54: Sodium 141, Potassium 4.3, Chloride 102, Carbon Dioxide 29, Anion Gap 14, BUN 15, Creatinine 1.1, Est GFR ( Amer) > 60, Est GFR (Non- Af Amer) > 60, Random Glucose 104, Calcium 9.7, Total Bilirubin 1.7 H, AST 28, ALT 25, Alkaline Phosphatase 60, Total Creatine Kinase 140, Total Protein 7.8, Albumin 4.6, Globulin 3.2, Albumin/Globulin Ratio 1.5 08/02/18 16:54: Urine Color Dark yellow, Urine Appearance Cloudy, Urine pH 6.0, Ur Specific [place] >= 1.030, Urine Protein 100 H, Urine Glucose (UA) Negative, Urine Ketones 15 H, Urine Blood Negative, Urine Nitrate Negative, Urine Bilirubin Moderate H, Urine Urobilinogen 0.2, Ur Leukocyte Esterase Negative, Urine RBC 0 - 2, Urine WBC 1 - 3, Ur Epithelial Cells 6 - 8 H, Urine Bacteria Many 08/02/18 16:54: WBC 9.0, RBC 4.34, Hgb 13.0, Hct 39.3, MCV 90.6, MCH 30.0, MCHC 33.1, RDW 12.8, Plt Count 230, MPV 10.8, Neut % (Auto) 75.1 H, Lymph % (Auto) 19.5 L, [place] % (Auto) 4.9, Eos % (Auto) 0.3 L, Baso % (Auto) 0.2, Lymph # (Auto) 1.8, [place] # (Auto) 0.4, Eos # (Auto) 0.0, Baso # (Auto) 0.02, Absolute Neuts (auto) 6.75 H Vital Signs Temp Pulse Resp BP Pulse Ox 08/06/18 07:35 98.2 F 102 H 20 115/71 08/05/18 16:11 125 H 122/77 08/05/18 07:00 98.1 F 120 H 19 111/74 08/04/18 16:00 96 H 111/71 08/04/18 07:00 97.7 F 71 17 92/60 L 08/03/18 07:08 97.8 F 78 18 91/46 L 08/02/18 23:30 18 08/02/18 22:24 98 F 88 18 143/86 99 08/02/18 20:53 82 18 137/80 100 08/02/18 20:11 98.3 F 82 16 152/89 H 100 08/02/18 17:36 89 20 99 08/02/18 16:16 98.3 F 129 H 18 146/95 H 100 DSM 5 Symptoms Update: Patient is a single, 18 year old female with history of schizophrenia, chronic cannabis use, at least one prior psychiatric admission at [facility] a few months ago, + history of SA as a minor, noncompliance with psychiatric medications of Prozac 20 mg po daily and Risperdal 0.5 mg po HS x 2 weeks who presented to the ER on Sunday,08/02/18 with her parents {mother & stepfather} for evaluation. ER & PES report indicate that, per parents, patient has been increasingly disorganized and aggressive at home. She has been talking and laughing to herself, throwing objects at family members and carelessly lighting candles in the house. Mother expressed concern that patient would burn the house down due to her disorganization. In the ED patient admitted to hearing auditory hallucinations of "voices". Patient was noted to be disorganized and actively responding to internal stimuli when she arrived on the unit. Patient was brought to seclusion room because she was loudly talking to herself. She appeared to respond well to medications Haldol 5 mg, Klonopin 1 mg and Sonata 10 mg po and slept through the night. Was seen today next to the nursing station, hygiene is improving, patient is superficially corporative, was smiling to this typewriter mechanic today saying that she is doing "perfectly fine, excellent, life is good", patient reported no side effects from the medications, reported that she wants to go back home. Injectab le form of the medication discussed with the patient, patient agreed. Patient gave permission to talk to her family, this typewriter mechanic left a message to her father, awaiting for callback. As per staff patient is labile, disorganized, impulses unpredictable, PCP also brought to this typewriter mechanic attention that patient might be cheeking medications. Nurse is aware of that. Thought process disorganized, illogical, patient also paranoid, guarded. So far patient tolerates medications well, no side effects observed or reported, aims 0, no EPS. Family meeting requested by social service assistant. Diagnostic Results: Schizophrenia by hx Depression by hx Cannabis abuse r/o SIPD {lacing of cannabis with hallucinogenics that aren't detectable on typical urine drug screens} Medication Change: Yes (Risperdal increased) Medical Record Reviewed: Yes Mental Status Examination - Cognitive Function Orientation: Person, Place Attention: Poor Concentration: Poor Association: Loose Fund of Knowledge: Poor - Mood Mood: Neutral - Affect Affect: Constricted, Flat - Formal Thought Process Formal Thought Process: Hallucinations, Paranoia, Loosening of associations - Suicidal Ideation Suicidal Ideation: No - Homicidal Ideation Homicidal Ideation: No Goal/Treatment Plan - Goal/Treatment Plan Need for Continued Stay: Remain at risks for inpatient hospitalization, Severe depression anxiety, Discharge may exacerbated symptoms, Severe functional impairment Progress Toward Problem(s) and Goals/Treatment Plan: Milieu/structure/supportive therapy SW consultation for discharge plan and social issues Med management Risperdal 1.5 mg twice a day and 2mg at the nighttime for psychosis As needed medication Prozac 20 mg daily for depression anxiety Family involvement, this typewriter mechanic left a message to pt's father Follow up on labs Will monitor closely Pt was educated about risk/benefits and alternatives of medications, coping strategies (safety plan, suicide prevention), relapse prevention, importance of follow up with psychiatrist and therapist, stay away from drugs/alcohol/smoking Estimated Date of D/C: 08/16/18
[2018-08-10] MEDS: Multivitamin With Minerals Tab PO SCH (09:05)
--- NOTE | 2018-08-10 09:54 | PCM.PYCHPN ---
Psychiatric Progress Note - Psychiatric Progress Note Patient seen today, length of contact: 30 minutes Problems Identified/Issues Discussed: History of Present Illness and Precipitating Events: Patient is a single, 18 year old female with history of schizophrenia, chronic cannabis use, at least one prior psychiatric admission at [facility] a few months ago, + history of SA as a minor, noncompliance with psychiatric medications of Prozac 20 mg po daily and Risperdal 0.5 mg po HS x 2 weeks who presented to the ER on Sunday,08/02/18 with her parents {mother & stepfather} for evaluation. ER & PES report indicate that, per parents, patient has been increasingly disorganized and aggressive at home. She has been talking and laughing to herself, throwing objects at family members and carelessly lighting candles in the house. Mother expressed concern that patient would burn the house down due to her disorganization. In the ED patient admitted to hearing auditory hallucinations of "voices". Patient was noted to be disorganized and actively responding to internal stimuli when she arrived on the unit. Patient was brought to seclusion room because she was loudly talking to herself. She appeared to respond well to medications Haldol 5 mg, Klonopin 1 mg and Sonata 10 mg po and slept through the night. I met with patient in the dayroom this morning. She is well-groomed and oriented to month, year and location. Regarding circumstances, she "doesn't really know" why she was hospitalized though almost immediately states "my mom noticed I was getting angry". Patient is guarded and aloof. She denies any issues with mood or perceptual disturbance. She denies recent agitated behaviors {contradicting ER reports}. Patient initially denies any prior psychiatric admissions however later indicates that she had "a psychotic break" a few months ago. With further questioning, she admitted that this psychotic break led to a psychiatric admission to [facility]. She cannot remember the symptoms that she demonstrated but recalls that her "neighbors called the cosmetic consultant on me". Patient is disengaged and internally preoccupied during my questioning. Nonetheless she is willing to restart psychiatric medications and there have been no behavioral issues regarding her compliance in this respect. She is secretive and disorganized, her behaviors remain unpredictable. PSYCHIATRIC HISTORY ~One prior psychiatric admission at [facility] a few months ago for psychotic break, "neighbors called the cosmetic consultant on me" ~History of SA as a minor, patient is vague. 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 She met with her psychiatrist at [facility] only on one occasion for her intake. SOCIAL HISTORY Single. Unemployed. Resides with her mother, stepfather and 18 yo stepbrother in [place], [place]. Patient dropped out of [employer] last year in her sophomore year. Patient has been smoking MJA almost on a daily basis since Miki year of high school. Recalls trying acid once as a freshman in college. Denies other drug use. Denies excessive alcohol use. Denies tobacco use. PROGRESS NOTE AUGUST 10, 2018 I reviewed recent notes and met with patient at bedside this morning. I am familiar with patient from our interviews last weekend. Her grooming remains fair and she is oriented to month, year and location. She is responsive but not overly communicative. She has a tendency to minimize her symptoms and required multiple prns for actively responding to internal stimuli last weekend. She has required much less prn medications in recent days however her engagement, spontaneity and paranoia are improving very slowly. She remains odd, guarded and aloof during my questioning. She also doesn't appear to recognize. Patient denies any new concerns at this time including issues with mood or perceptual disturbance. Tolerating her medications without any new discomfort or pain. There have been no further incidents of patient coughing up blood. There were no behavioral issues overnight. Diagnostic Results: Schizophrenia by hx Depression by hx Cannabis abuse r/o SIPD {lacing of cannabis with hallucinogenics that aren't detectable on typical urine drug screens} Medication Change: No ( ) Medical Record Reviewed: Yes Mental Status Examination - Cognitive Function Orientation: Person, Place Attention: Poor Concentration: Poor Association: Loose Fund of Knowledge: Poor - Mood Mood: Neutral - Affect Affect: Constricted, Flat - Formal Thought Process Formal Thought Process: Hallucinations (always denied but has been observed responding to internal stimuli), Paranoia, Loosening of associations - Suicidal Ideation Suicidal Ideation: No - Homicidal Ideation Homicidal Ideation: No Goal/Treatment Plan - Goal/Treatment Plan Need for Continued Stay: Remain at risks for inpatient hospitalization, Severe depression anxiety, Discharge may exacerbated symptoms, Severe functional impairment Progress Toward Problem(s) and Goals/Treatment Plan: * c/w current tx and plan * Vitals reviewed and noted below: Selected Entries 08/09/18 08/09/18 07:19 16:00 Temperature 97.5 F L Pulse Rate 79 88 Respiratory 20 Rate Blood Pressure 105/65 107/74 * No new weekend lab results noted thus far Please refer to ER report dated 08/02/18 for physical exam and ROS findings. 08/02/18 19:15 Patient is nontoxic well-appearing in no distress vital signs are stable. CBC WNL CMP WNL Tylenol WNL Salicylate WNL Alcohol level WNL Urine drug screen positive for marijuana UA; no leukocytes cxr: wnl ekg sinus rhythm with short PA at 92 bpm normal axis no ST elevations QTC 417 ADMISSION LABS NOTED BELOW: Laboratory Tests 08/02/18 08/02/18 08/02/18 16:54 16:54 16:54 WBC 9.0 RBC 4.34 Hgb 13.0 Hct 39.3 MCV 90.6 MCH 30.0 MCHC 33.1 RDW 12.8 Plt Count 230 MPV 10.8 Neut % (Auto) 75.1 H Lymph % (Auto) 19.5 L [place] % (Auto) 4.9 Eos % (Auto) 0.3 L Baso % (Auto) 0.2 Lymph # (Auto) 1.8 [place] # (Auto) 0.4 Eos # (Auto) 0.0 Baso # (Auto) 0.02 Absolute Neuts (auto) 6.75 H Sodium 141 Potassium 4.3 Chloride 102 Carbon Dioxide 29 Anion Gap 14 BUN 15 Creatinine 1.1 Est GFR ( Amer) > 60 Est GFR (Non-Af Amer) > 60 Random Glucose 104 Fasting Glucose Calcium 9.7 Total Bilirubin 1.7 H AST 28 ALT 25 Alkaline Phosphatase 60 Total Creatine Kinase 140 Total Protein 7.8 Albumin 4.6 Globulin 3.2 Albumin/Globulin Ratio 1.5 Triglycerides Cholesterol LDL Cholesterol Direct HDL Cholesterol TSH 3rd Generation Urine Color Dark yellow Urine Appearance Cloudy Urine pH 6.0 Ur Specific [place] >= 1.030 Urine Protein 100 H Urine Glucose (UA) Negative Urine Ketones 15 H Urine Blood Negative Urine Nitrate Negative Urine Bilirubin Moderate H Urine Urobilinogen 0.2 Ur Leukocyte Esterase Negative Urine RBC 0 - 2 Urine WBC 1 - 3 Ur Epithelial Cells 6 - 8 H Urine Bacteria Many Salicylates Urine Opiates Screen Urine Methadone Screen Acetaminophen Ur Barbiturates Screen Ur Phencyclidine Scrn Ur Amphetamines Screen U Benzodiazepines Scrn U Oth Cocaine Metabols U Cannabinoids Screen Alcohol, Quantitative 08/02/18 08/02/18 08/02/18 16:54 16:54 16:54 WBC RBC Hgb Hct MCV MCH MCHC RDW Plt Count MPV Neut % (Auto) Lymph % (Auto) [place] % (Auto) Eos % (Auto) Baso % (Auto) Lymph # (Auto) [place] # (Auto) Eos # (Auto) Baso # (Auto) Absolute Neuts (auto) Sodium Potassium Chloride Carbon Dioxide Anion Gap BUN Creatinine Est GFR ( Amer) Est GFR (Non-Af Amer) Random Glucose Fasting Glucose Calcium Total Bilirubin AST ALT Alkaline Phosphatase Total Creatine Kinase Total Protein Albumin Globulin Albumin/Globulin Ratio Triglycerides Cholesterol LDL Cholesterol Direct HDL Cholesterol TSH 3rd Generation Urine Color Urine Appearance Urine pH Ur Specific [place] Urine Protein Urine Glucose (UA) Urine Ketones Urine Blood Urine Nitrate Urine Bilirubin Urine Urobilinogen Ur Leukocyte Esterase Urine RBC Urine WBC Ur Epithelial Cells Urine Bacteria Salicylates < 1 L Urine Opiates Screen Negative Urine Methadone Screen Negative Acetaminophen < 10.0 L Ur Barbiturates Screen Negative Ur Phencyclidine Scrn Negative Ur Amphetamines Screen Negative U Benzodiazepines Scrn Negative U Oth Cocaine Metabols Negative U Cannabinoids Screen Positive H Alcohol, Quantitative < 10 08/03/18 08/03/18 07:00 07:00 WBC RBC Hgb Hct MCV MCH MCHC RDW Plt Count MPV Neut % (Auto) Lymph % (Auto) [place] % (Auto) Eos % (Auto) Baso % (Auto) Lymph # (Auto) [place] # (Auto) Eos # (Auto) Baso # (Auto) Absolute Neuts (auto) Sodium Potassium Chloride Carbon Dioxide Anion Gap BUN Creatinine Est GFR ( Amer) Est GFR (Non-Af Amer) Random Glucose Fasting Glucose 135 H Calcium Total Bilirubin AST ALT Alkaline Phosphatase Total Creatine Kinase Total Protein Albumin Globulin Albumin/Globulin Ratio Triglycerides 42 Cholesterol 169 LDL Cholesterol Direct 76 HDL Cholesterol 74 H TSH 3rd Generation 1.15 Urine Color Urine Appearance Urine pH Ur Specific [place] Urine Protein Urine Glucose (UA) Urine Ketones Urine Blood Urine Nitrate Urine Bilirubin Urine Urobilinogen Ur Leukocyte Esterase Urine RBC Urine WBC Ur Epithelial Cells Urine Bacteria Salicylates Urine Opiates Screen Urine Methadone Screen Acetaminophen Ur Barbiturates Screen Ur Phencyclidine Scrn Ur Amphetamines Screen U Benzodiazepines Scrn U Oth Cocaine Metabols U Cannabinoids Screen Alcohol, Quantitative Estimated Date of D/C: 08/16/18
[2018-08-11] MEDS: Multivitamin With Minerals Tab PO SCH (09:38)
--- NOTE | 2018-08-11 09:39 | PCM.PYCHPN ---
Psychiatric Progress Note - Psychiatric Progress Note Patient seen today, length of contact: 30 minutes Problems Identified/Issues Discussed: History of Present Illness and Precipitating Events: Patient is a single, 18 year old female with history of schizophrenia, chronic cannabis use, at least one prior psychiatric admission at [facility] a few months ago, + history of SA as a minor, noncompliance with psychiatric medications of Prozac 20 mg po daily and Risperdal 0.5 mg po HS x 2 weeks who presented to the ER on Sunday,08/02/18 with her parents {mother & stepfather} for evaluation. ER & PES report indicate that, per parents, patient has been increasingly disorganized and aggressive at home. She has been talking and laughing to herself, throwing objects at family members and carelessly lighting candles in the house. Mother expressed concern that patient would burn the house down due to her disorganization. In the ED patient admitted to hearing auditory hallucinations of "voices". Patient was noted to be disorganized and actively responding to internal stimuli when she arrived on the unit. Patient was brought to seclusion room because she was loudly talking to herself. She appeared to respond well to medications Haldol 5 mg, Klonopin 1 mg and Sonata 10 mg po and slept through the night. I met with patient in the dayroom this morning. She is well-groomed and oriented to month, year and location. Regarding circumstances, she "doesn't really know" why she was hospitalized though almost immediately states "my mom noticed I was getting angry". Patient is guarded and aloof. She denies any issues with mood or perceptual disturbance. She denies recent agitated behaviors {contradicting ER reports}. Patient initially denies any prior psychiatric admissions however later indicates that she had "a psychotic break" a few months ago. With further questioning, she admitted that this psychotic break led to a psychiatric admission to [facility]. She cannot remember the symptoms that she demonstrated but recalls that her "neighbors called the laborer pole crew on me". Patient is disengaged and internally preoccupied during my questioning. Nonetheless she is willing to restart psychiatric medications and there have been no behavioral issues regarding her compliance in this respect. She is secretive and disorganized, her behaviors remain unpredictable. PSYCHIATRIC HISTORY ~One prior psychiatric admission at [facility] a few months ago for psychotic break, "neighbors called the laborer pole crew on me" ~History of SA as a minor, patient is vague. ~Noncompliant with psychiatric medications of Prozac 20 mg po daily and Risperdal 0.5 mg po HS x 2 weeks [employer], patient was only taking these medications for one month. She met with her psychiatrist at [facility] only on one occasion for her intake. SOCIAL HISTORY Single. Unemployed. Resides with her mother, stepfather and 18 yo stepbrother in [place], [place]. Patient dropped out of [employer] last year in her sophomore year. Patient has been smoking MJA almost on a daily basis since Miki year of high school. Recalls trying acid once as a freshman in college. Denies other drug use. Denies excessive alcohol use. Denies tobacco use. PROGRESS NOTE AUGUST 11, 2018 I reviewed recent notes and I was alerted by staff about inappropriate behaviors between this patient and male patient PP on Sunday. Apparently they were found kissing in bed in her room. Both had their clothing on and reported the interaction was consensual. Both also denied anything further than kissing and touching occurred. Nursing counseled patient again about rules, appropriate behaviors and boundaries on the unit. Male patient PP spent the rest of the day and night in the quiet room without further incident. I reviewed unit rules with patient this morning and she commits to follow them. Patient remains oriented to month, year and location. She is responsive and a little more communicative today. We discuss her name and she indicates that her name is "actually Carlee but they made a mistake on my certificate". It's really unclear if this is true. Patient has a tendency to minimize her symptoms and required multiple prns for actively responding to internal stimuli last weekend. She has required much less prn medications in recent days and her engagement, spontaneity and paranoia are improving very slowly. She still seems odd and guarded during my questioning. Patient denies any new concerns at this time including issues with mood or perceptual disturbance. Tolerating her medications without any new discomfort or pain. There have been no further incidents of patient coughing up blood. There were no other behavioral issues over the weekend thus far. Diagnostic Results: Schizophrenia by hx Depression by hx Cannabis abuse r/o SIPD {lacing of cannabis with hallucinogenics that aren't detectable on typical urine drug screens} Medication Change: No ( ) Medical Record Reviewed: Yes Mental Status Examination - Cognitive Function Orientation: Person, Place Attention: Poor Concentration: Poor Association: Loose Fund of Knowledge: Poor - Mood Mood: Neutral - Affect Affect: Constricted, Flat - Formal Thought Process Formal Thought Process: Hallucinations (always denied but has been observed responding to internal stimuli), Paranoia, Loosening of associations - Suicidal Ideation Suicidal Ideation: No - Homicidal Ideation Homicidal Ideation: No Goal/Treatment Plan - Goal/Treatment Plan Need for Continued Stay: Remain at risks for inpatient hospitalization, Severe depression anxiety, Discharge may exacerbated symptoms, Severe functional impairment Progress Toward Problem(s) and Goals/Treatment Plan: * c/w current tx and plan * NOTE: I was alerted by staff about inappropriate behaviors between this patient and male patient PP on Sunday. Apparently they were found kissing in bed in her room. Both had their clothing on and reported the interaction was consensual. Both also denied anything further than kissing and touching occurred. Nursing counseled patient again about rules, appropriate behaviors and boundaries on the unit. Male patient PP spent the rest of the day and night in the quiet room without further incident. ~I reviewed unit rules with patient this morning {08/11/18} & she commits to follow them. * Vitals reviewed and noted below: Selected Entries 08/10/18 08/10/18 07:00 16:04 Temperature 98.2 F Pulse Rate 87 101 H Respiratory 17 Rate Blood Pressure 95/59 L 101/66 Selected Entries * No new weekend lab results noted Please refer to ER report dated 08/02/18 for physical exam and ROS findings. 08/02/18 19:15 Patient is nontoxic well-appearing in no distress vital signs are stable. CBC WNL CMP WNL Tylenol WNL Salicylate WNL Alcohol level WNL Urine drug screen positive for marijuana UA; no leukocytes cxr: wnl ekg sinus rhythm with short MD at 92 bpm normal axis no ST elevations QTC 417 ADMISSION LABS NOTED BELOW: Laboratory Tests 08/02/18 08/02/18 08/02/18 16:54 16:54 16:54 WBC 9.0 RBC 4.34 Hgb 13.0 Hct 39.3 MCV 90.6 MCH 30.0 MCHC 33.1 RDW 12.8 Plt Count 230 MPV 10.8 Neut % (Auto) 75.1 H Lymph % (Auto) 19.5 L [place] % (Auto) 4.9 Eos % (Auto) 0.3 L Baso % (Auto) 0.2 Lymph # (Auto) 1.8 [place] # (Auto) 0.4 Eos # (Auto) 0.0 Baso # (Auto) 0.02 Absolute Neuts (auto) 6.75 H Sodium 141 Potassium 4.3 Chloride 102 Carbon Dioxide 29 Anion Gap 14 BUN 15 Creatinine 1.1 Est GFR ( Amer) > 60 Est GFR (Non-Af Amer) > 60 Random Glucose 104 Fasting Glucose Calcium 9.7 Total Bilirubin 1.7 H AST 28 ALT 25 Alkaline Phosphatase 60 Total Creatine Kinase 140 Total Protein 7.8 Albumin 4.6 Globulin 3.2 Albumin/Globulin Ratio 1.5 Triglycerides Cholesterol LDL Cholesterol Direct HDL Cholesterol TSH 3rd Generation Urine Color Dark yellow Urine Appearance Cloudy Urine pH 6.0 Ur Specific [place] >= 1.030 Urine Protein 100 H Urine Glucose (UA) Negative Urine Ketones 15 H Urine Blood Negative Urine Nitrate Negative Urine Bilirubin Moderate H Urine Urobilinogen 0.2 Ur Leukocyte Esterase Negative Urine RBC 0 - 2 Urine WBC 1 - 3 Ur Epithelial Cells 6 - 8 H Urine Bacteria Many Salicylates Urine Opiates Screen Urine Methadone Screen Acetaminophen Ur Barbiturates Screen Ur Phencyclidine Scrn Ur Amphetamines Screen U Benzodiazepines Scrn U Oth Cocaine Metabols U Cannabinoids Screen Alcohol, Quantitative 08/02/18 08/02/18 08/02/18 16:54 16:54 16:54 WBC RBC Hgb Hct MCV MCH MCHC RDW Plt Count MPV Neut % (Auto) Lymph % (Auto) [place] % (Auto) Eos % (Auto) Baso % (Auto) Lymph # (Auto) [place] # (Auto) Eos # (Auto) Baso # (Auto) Absolute Neuts (auto) Sodium Potassium Chloride Carbon Dioxide Anion Gap BUN Creatinine Est GFR ( Amer) Est GFR (Non-Af Amer) Random Glucose Fasting Glucose Calcium Total Bilirubin AST ALT Alkaline Phosphatase Total Creatine Kinase Total Protein Albumin Globulin Albumin/Globulin Ratio Triglycerides Cholesterol LDL Cholesterol Direct HDL Cholesterol TSH 3rd Generation Urine Color Urine Appearance Urine pH Ur Specific [place] Urine Protein Urine Glucose (UA) Urine Ketones Urine Blood Urine Nitrate Urine Bilirubin Urine Urobilinogen Ur Leukocyte Esterase Urine RBC Urine WBC Ur Epithelial Cells Urine Bacteria Salicylates < 1 L Urine Opiates Screen Negative Urine Methadone Screen Negative Acetaminophen < 10.0 L Ur Barbiturates Screen Negative Ur Phencyclidine Scrn Negative Ur Amphetamines Screen Negative U Benzodiazepines Scrn Negative U Oth Cocaine Metabols Negative U Cannabinoids Screen Positive H Alcohol, Quantitative < 10 08/03/18 08/03/18 07:00 07:00 WBC RBC Hgb Hct MCV MCH MCHC RDW Plt Count MPV Neut % (Auto) Lymph % (Auto) [place] % (Auto) Eos % (Auto) Baso % (Auto) Lymph # (Auto) [place] # (Auto) Eos # (Auto) Baso # (Auto) Absolute Neuts (auto) Sodium Potassium Chloride Carbon Dioxide Anion Gap BUN Creatinine Est GFR ( Amer) Est GFR (Non-Af Amer) Random Glucose Fasting Glucose 135 H Calcium Total Bilirubin AST ALT Alkaline Phosphatase Total Creatine Kinase Total Protein Albumin Globulin Albumin/Globulin Ratio Triglycerides 42 Cholesterol 169 LDL Cholesterol Direct 76 HDL Cholesterol 74 H TSH 3rd Generation 1.15 Urine Color Urine Appearance Urine pH Ur Specific [place] Urine Protein Urine Glucose (UA) Urine Ketones Urine Blood Urine Nitrate Urine Bilirubin Urine Urobilinogen Ur Leukocyte Esterase Urine RBC Urine WBC Ur Epithelial Cells Urine Bacteria Salicylates Urine Opiates Screen Urine Methadone Screen Acetaminophen Ur Barbiturates Screen Ur Phencyclidine Scrn Ur Amphetamines Screen U Benzodiazepines Scrn U Oth Cocaine Metabols U Cannabinoids Screen Alcohol, Quantitative Estimated Date of D/C: 08/16/18
[2018-08-12] MEDS: Multivitamin With Minerals Tab PO SCH (09:13)
--- NOTE | 2018-08-12 12:43 | PCM.BM ---
<Allison Wyattda - Last Filed: 08/12/18 12:40> Treatment Plan Problems - Problems identified on initial assessmt Medication non-adherence Date Initiated: 08/02/18 (COMPLIANT WITH MEDS,AGREED TO TAKE INVEGA SUST IM Q MONTH) Time Initiated: 22:39 Assessment reference: NA Status: Active Auditory hallucinations Date Initiated: 08/02/18 Time Initiated: 22:40 Date resolved: 08/12/18 Assessment reference: NA Status: Active Visual hallucinations Date Initiated: 08/02/18 Time Initiated: 22:40 Date resolved: 08/12/18 Assessment reference: NA Status: Active Altered thought process Date Initiated: 08/02/18 (08/12/18 PT IS MORE CONNECTED AND RELEVANT) Time Initiated: 22:40 Assessment reference: NA Status: Active Ineffective coping Date Initiated: 08/02/18 (PT IS MORE HOPEFUL AND POSITIVE) Time Initiated: 22:41 Assessment reference: NA Status: Active Treatment assets and liabiliti Patient Assests: educated, physically healthy Patient Liabilities: relationship conflicts, substance abuse - Milieu Protocol Maintain good personal hygiene: daily Encourage regular showers, daily Remind patient to perform daily oral care Conduct patient checks and document Observation sheet: Q15 minutes Maintain personal safety: every shift Educate patient to report safety concerns to staff, every shift Monitor environment for contraband/sharps Medication safety: Monitor for expected outcome, potential side effects: every shift, Assess barriers to learning: every shift, Assess readiness for medication education: every shift Milieu Narrative: * c/w current tx and plan * NOTE: I was alerted by staff about inappropriate behaviors between this patient and male patient PP on Sunday. Apparently they were found kissing in bed in her room. Both had their clothing on and reported the interaction was consensual. Both also denied anything further than kissing and touching occurred. Nursing counseled patient again about rules, appropriate behaviors and boundaries on the unit. Male patient PP spent the rest of the day and night in the quiet room without further incident. ~I reviewed unit rules with patient this morning {08/11/18} & she commits to follow them. * Vitals reviewed and noted below: Selected Entries 08/10/18 08/10/18 07:00 16:04 Temperature 98.2 F Pulse Rate 87 101 H Respiratory 17 Rate Blood Pressure 95/59 L 101/66 Selected Entries * No new weekend lab results noted Please refer to ER report dated 08/02/18 for physical exam and ROS findings. 08/02/18 19:15 Patient is nontoxic well-appearing in no distress vital signs are stable. CBC WNL CMP WNL Tylenol WNL Salicylate WNL Alcohol level WNL Urine drug screen positive for marijuana UA; no leukocytes cxr: wnl ekg sinus rhythm with short NC at 92 bpm normal axis no ST elevations QTC 417 ADMISSION LABS NOTED BELOW: Laboratory Tests 08/02/18 08/02/18 08/02/18 16:54 16:54 16:54 WBC 9.0 RBC 4.34 Hgb 13.0 Hct 39.3 MCV 90.6 MCH 30.0 MCHC 33.1 RDW 12.8 Plt Count 230 MPV 10.8 Neut % (Auto) 75.1 H Lymph % (Auto) 19.5 L [place] % (Auto) 4.9 Eos % (Auto) 0.3 L Baso % (Auto) 0.2 Lymph # (Auto) 1.8 [place] # (Auto) 0.4 Eos # (Auto) 0.0 Baso # (Auto) 0.02 Absolute Neuts (auto) 6.75 H Sodium 141 Potassium 4.3 Chloride 102 Carbon Dioxide 29 Anion Gap 14 BUN 15 Creatinine 1.1 Est GFR ( Amer) > 60 Est GFR (Non-Af Amer) > 60 Random Glucose 104 Fasting Glucose Calcium 9.7 Total Bilirubin 1.7 H AST 28 ALT 25 Alkaline Phosphatase 60 Total Creatine Kinase 140 Total Protein 7.8 Albumin 4.6 Globulin 3.2 Albumin/Globulin Ratio 1.5 Triglycerides Cholesterol LDL Cholesterol Direct HDL Cholesterol TSH 3rd Generation Urine Color Dark yellow Urine Appearance Cloudy Urine pH 6.0 Ur Specific [place] >= 1.030 Urine Protein 100 H Urine Glucose (UA) Negative Urine Ketones 15 H Urine Blood Negative Urine Nitrate Negative Urine Bilirubin Moderate H Urine Urobilinogen 0.2 Ur Leukocyte Esterase Negative Urine RBC 0 - 2 Urine WBC 1 - 3 Ur Epithelial Cells 6 - 8 H Urine Bacteria Many Salicylates Urine Opiates Screen Urine Methadone Screen Acetaminophen Ur Barbiturates Screen Ur Phencyclidine Scrn Ur Amphetamines Screen U Benzodiazepines Scrn U Oth Cocaine Metabols U Cannabinoids Screen Alcohol, Quantitative 08/02/18 08/02/18 08/02/18 16:54 16:54 16:54 WBC RBC Hgb Hct MCV MCH MCHC RDW Plt Count MPV Neut % (Auto) Lymph % (Auto) [place] % (Auto) Eos % (Auto) Baso % (Auto) Lymph # (Auto) [place] # (Auto) Eos # (Auto) Baso # (Auto) Absolute Neuts (auto) Sodium Potassium Chloride Carbon Dioxide Anion Gap BUN Creatinine Est GFR ( Amer) Est GFR (Non-Af Amer) Random Glucose Fasting Glucose Calcium Total Bilirubin AST ALT Alkaline Phosphatase Total Creatine Kinase Total Protein Albumin Globulin Albumin/Globulin Ratio Triglycerides Cholesterol LDL Cholesterol Direct HDL Cholesterol TSH 3rd Generation Urine Color Urine Appearance Urine pH Ur Specific [place] Urine Protein Urine Glucose (UA) Urine Ketones Urine Blood Urine Nitrate Urine Bilirubin Urine Urobilinogen Ur Leukocyte Esterase Urine RBC Urine WBC Ur Epithelial Cells Urine Bacteria Salicylates < 1 L Urine Opiates Screen Negative Urine Methadone Screen Negative Acetaminophen < 10.0 L Ur Barbiturates Screen Negative Ur Phencyclidine Scrn Negative Ur Amphetamines Screen Negative U Benzodiazepines Scrn Negative U Oth Cocaine Metabols Negative U Cannabinoids Screen Positive H Alcohol, Quantitative < 10 08/03/18 08/03/18 07:00 07:00 WBC RBC Hgb Hct MCV MCH MCHC RDW Plt Count MPV Neut % (Auto) Lymph % (Auto) [place] % (Auto) Eos % (Auto) Baso % (Auto) Lymph # (Auto) [place] # (Auto) Eos # (Auto) Baso # (Auto) Absolute Neuts (auto) Sodium Potassium Chloride Carbon Dioxide Anion Gap BUN Creatinine Est GFR ( Amer) Est GFR (Non-Af Amer) Random Glucose Fasting Glucose 135 H Calcium Total Bilirubin AST ALT Alkaline Phosphatase Total Creatine Kinase Total Protein Albumin Globulin Albumin/Globulin Ratio Triglycerides 42 Cholesterol 169 LDL Cholesterol Direct 76 HDL Cholesterol 74 H TSH 3rd Generation 1.15 Urine Color Urine Appearance Urine pH Ur Specific [place] Urine Protein Urine Glucose (UA) Urine Ketones Urine Blood Urine Nitrate Urine Bilirubin Urine Urobilinogen Ur Leukocyte Esterase Urine RBC Urine WBC Ur Epithelial Cells Urine Bacteria Salicylates Urine Opiates Screen Urine Methadone Screen Acetaminophen Ur Barbiturates Screen Ur Phencyclidine Scrn Ur Amphetamines Screen U Benzodiazepines Scrn U Oth Cocaine Metabols U Cannabinoids Screen Alcohol, Quantitative Family Contact Family involvement: Family/SO is involved Family contact: Patient agrees to contact Discharge/Continuing Care - Education Needs Education Needs: Patient Medication, Patient Diagnosis/Disease Process, Patient Coping Skills, Patient Anger Management skills, Patient Aftercare Safety Plan - Discharge Discharge Criteria: Tolerates medication w/o severe side effects, Free of agitation, Normal sleep pattern, Ability to care for self, No longer exhibiting s/s of withdrawal, Reduction of target symptoms Discharge to:: Home - Treatment Team Participation Patient/Family/SO Statement: * c/w current tx and plan * NOTE: I was alerted by staff about inappropriate behaviors between this patient and male patient PP on Sunday. Apparently they were found kissing in bed in her room. Both had their clothing on and reported the interaction was consensual. Both also denied anything further than kissing and touching occurred. Nursing counseled patient again about rules, appropriate behaviors and boundaries on the unit. Male patient PP spent the rest of the day and night in the quiet room without further incident. ~I reviewed unit rules with patient this morning {08/11/18} & she commits to follow them. * Vitals reviewed and noted below: Selected Entries 08/10/18 08/10/18 07:00 16:04 Temperature 98.2 F Pulse Rate 87 101 H Respiratory 17 Rate Blood Pressure 95/59 L 101/66 Selected Entries * No new weekend lab results noted Please refer to ER report dated 08/02/18 for physical exam and ROS findings. 08/02/18 19:15 Patient is nontoxic well-appearing in no distress vital signs are stable. CBC WNL CMP WNL Tylenol WNL Salicylate WNL Alcohol level WNL Urine drug screen positive for marijuana UA; no leukocytes cxr: wnl ekg sinus rhythm with short NC at 92 bpm normal axis no ST elevations QTC 417 ADMISSION LABS NOTED BELOW: Laboratory Tests 08/02/18 08/02/18 08/02/18 16:54 16:54 16:54 WBC 9.0 RBC 4.34 Hgb 13.0 Hct 39.3 MCV 90.6 MCH 30.0 MCHC 33.1 RDW 12.8 Plt Count 230 MPV 10.8 Neut % (Auto) 75.1 H Lymph % (Auto) 19.5 L [place] % (Auto) 4.9 Eos % (Auto) 0.3 L Baso % (Auto) 0.2 Lymph # (Auto) 1.8 [place] # (Auto) 0.4 Eos # (Auto) 0.0 Baso # (Auto) 0.02 Absolute Neuts (auto) 6.75 H Sodium 141 Potassium 4.3 Chloride 102 Carbon Dioxide 29 Anion Gap 14 BUN 15 Creatinine 1.1 Est GFR ( Amer) > 60 Est GFR (Non-Af Amer) > 60 Random Glucose 104 Fasting Glucose Calcium 9.7 Total Bilirubin 1.7 H AST 28 ALT 25 Alkaline Phosphatase 60 Total Creatine Kinase 140 Total Protein 7.8 Albumin 4.6 Globulin 3.2 Albumin/Globulin Ratio 1.5 Triglycerides Cholesterol LDL Cholesterol Direct HDL Cholesterol TSH 3rd Generation Urine Color Dark yellow Urine Appearance Cloudy Urine pH 6.0 Ur Specific [place] >= 1.030 Urine Protein 100 H Urine Glucose (UA) Negative Urine Ketones 15 H Urine Blood Negative Urine Nitrate Negative Urine Bilirubin Moderate H Urine Urobilinogen 0.2 Ur Leukocyte Esterase Negative Urine RBC 0 - 2 Urine WBC 1 - 3 Ur Epithelial Cells 6 - 8 H Urine Bacteria Many Salicylates Urine Opiates Screen Urine Methadone Screen Acetaminophen Ur Barbiturates Screen Ur Phencyclidine Scrn Ur Amphetamines Screen U Benzodiazepines Scrn U Oth Cocaine Metabols U Cannabinoids Screen Alcohol, Quantitative 08/02/18 08/02/18 08/02/18 16:54 16:54 16:54 WBC RBC Hgb Hct MCV MCH MCHC RDW Plt Count MPV Neut % (Auto) Lymph % (Auto) [place] % (Auto) Eos % (Auto) Baso % (Auto) Lymph # (Auto) [place] # (Auto) Eos # (Auto) Baso # (Auto) Absolute Neuts (auto) Sodium Potassium Chloride Carbon Dioxide Anion Gap BUN Creatinine Est GFR ( Amer) Est GFR (Non-Af Amer) Random Glucose Fasting Glucose Calcium Total Bilirubin AST ALT Alkaline Phosphatase Total Creatine Kinase Total Protein Albumin Globulin Albumin/Globulin Ratio Triglycerides Cholesterol LDL Cholesterol Direct HDL Cholesterol TSH 3rd Generation Urine Color Urine Appearance Urine pH Ur Specific [place] Urine Protein Urine Glucose (UA) Urine Ketones Urine Blood Urine Nitrate Urine Bilirubin Urine Urobilinogen Ur Leukocyte Esterase Urine RBC Urine WBC Ur Epithelial Cells Urine Bacteria Salicylates < 1 L Urine Opiates Screen Negative Urine Methadone Screen Negative Acetaminophen < 10.0 L Ur Barbiturates Screen Negative Ur Phencyclidine Scrn Negative Ur Amphetamines Screen Negative U Benzodiazepines Scrn Negative U Oth Cocaine Metabols Negative U Cannabinoids Screen Positive H Alcohol, Quantitative < 10 08/03/18 08/03/18 07:00 07:00 WBC RBC Hgb Hct MCV MCH MCHC RDW Plt Count MPV Neut % (Auto) Lymph % (Auto) [place] % (Auto) Eos % (Auto) Baso % (Auto) Lymph # (Auto) [place] # (Auto) Eos # (Auto) Baso # (Auto) Absolute Neuts (auto) Sodium Potassium Chloride Carbon Dioxide Anion Gap BUN Creatinine Est GFR ( Amer) Est GFR (Non-Af Amer) Random Glucose Fasting Glucose 135 H Calcium Total Bilirubin AST ALT Alkaline Phosphatase Total Creatine Kinase Total Protein Albumin Globulin Albumin/Globulin Ratio Triglycerides 42 Cholesterol 169 LDL Cholesterol Direct 76 HDL Cholesterol 74 H TSH 3rd Generation 1.15 Urine Color Urine Appearance Urine pH Ur Specific [place] Urine Protein Urine Glucose (UA) Urine Ketones Urine Blood Urine Nitrate Urine Bilirubin Urine Urobilinogen Ur Leukocyte Esterase Urine RBC Urine WBC Ur Epithelial Cells Urine Bacteria Salicylates Urine Opiates Screen Urine Methadone Screen Acetaminophen Ur Barbiturates Screen Ur Phencyclidine Scrn Ur Amphetamines Screen U Benzodiazepines Scrn U Oth Cocaine Metabols U Cannabinoids Screen Alcohol, Quantitative Treatment Plan Review - Problem Medication non-adherence Time Initiated: 22:39 Auditory hallucinations Time Initiated: 22:40 Visual hallucinations Time Initiated: 22:40 Altered thought process Time Initiated: 22:40 Ineffective coping Time Initiated: 22:41 <Annamarie Angeles - Last Filed: 08/12/18 15:57> - Diagnosis (1) Schizophrenia Status: Acute Interventions: 08/03/18 10:05 There is some improvement with patient presentation Family meeting scheduled for tomorrow August 13, 2018 Patient is compliant with the medications We will consider injectable form of the medication <Victoria Fuentes Y - Last Filed: 08/13/18 08:38> Family Contact Family involvement: Family/SO is involved Family contact: Patient agrees to contact
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
[2018-08-13 06:57] VITALS: BP 96/60; PULSE 82; RESP 17; TEMP 97.9
[2018-08-13] MEDS: Multivitamin With Minerals Tab PO SCH (08:46)
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
== END 2018-08-13 14:36 | disposition home or self-care (01) | DRG 750 ==
LOC: ED 15:59 → ERH 19:08 → PSYC 21:22
PROVIDERS: ADMIT Psychiatry & Neurology Psychiatry; ATTEND Psychiatry & Neurology Psychiatry
DX: F20.9 Schizophrenia, unspecified (principal); Z91.14 Patient's other noncompliance with medication regimen; F41.8 Other specified anxiety disorders; F17.200 Nicotine dependence, unspecified, uncomplicated; F12.10 Cannabis abuse, uncomplicated; G47.00 Insomnia, unspecified; Z79.899 Other long term (current) drug therapy